=== PATIENT | male | born 1995 | race Asian ===

== ENCOUNTER 2016-10-14 04:52 | Emergency (ER) | payer OTHER ==
[2016-10-14 05:52] VITALS: BP 122/73
[2016-10-14] MEDS ORDERED: ULTRAM PO ONE (06:26)
--- NOTE | 2016-10-14 06:27 | Emergency Department Report ---
ED Lower Extremity HPI - General Chief Complaint: Extremity Injury, Lower Stated Complaint: L KNEE PAIN/EDEMA Time Seen by Provider: 10/14/16 06:22 Source: patient Mode of arrival: Ambulatory Limitations: No Limitations - History of Present Illness Initial Comments: pt is s 21 y/o aam with hx left knee pain with hx of effusions drained x 2 by ortho, pt presents for left knee pain since yesterday as "I woke up with pain in my left knee" , pt advises that he hyperenxtended his knee which exacerbated pain of 5/10 , symptoms include aching and swelling , pain is exacerbated by ambulation pain is relieved by rest and elevation Complaint: knee injury Onset/Timin -: days(s) Injury: Knee: Left (pain swelling ) Type of Injury: hyperextension Place: home Severity: moderate Severity scale (0 -10): 5 Improves With: rest Worsens With: weight bearing, movement, palpation Context: other (hyperextended knee ) Associated Symptoms: snap/pop sensation, swelling, able to partially bear weight. denies: numbness, tingling Treatments Prior to Arrival: other (none) - Related Data Previous Rx's Medication Instructions Recorded Last Taken Type Acetaminophen/Codeine 1 tab PO Q6H PRN #25 tab 02/20/14 Unknown Rx [Acetaminophen-Codeine #3 TAB] Amoxicillin/K Clav Tab [Augmentin 1 tab PO BID #20 tablet 02/20/14 Unknown Rx 875MG] Ibuprofen [Motrin] 600 mg PO Q8H PRN #60 tablet 02/20/14 Unknown Rx predniSONE [Deltasone] 50 mg PO QDAY #5 tab 02/20/14 Unknown Rx Cyclobenzaprine [Flexeril] 10 mg PO TID PRN #15 tablet 09/30/15 Unknown Rx Ibuprofen [Motrin 800 MG tab] 800 mg PO Q8HR PRN #30 tablet 09/30/15 Unknown Rx Cyclobenzaprine [Flexeril] 10 mg PO TID PRN #30 tablet 10/14/16 Unknown Rx Naproxen [Naprosyn TAB] 500 mg PO BID PRN #60 tablet 10/14/16 Unknown Rx predniSONE [Deltasone] 40 mg PO QDAY #5 tab 10/14/16 Unknown Rx Allergies Allergy/AdvReac Type Severity Reaction Status Date / Time No Known Allergies Allergy Unverified 02/20/14 14:31 ED Review of Systems ROS: Stated complaint: L KNEE PAIN/EDEMA Other details as noted in HPI Constitutional: denies: chills, fever Eyes: denies: eye pain, eye discharge, vision change ENT: denies: ear pain, throat pain Respiratory: denies: cough, shortness of breath, wheezing Cardiovascular: denies: chest pain, palpitations Endocrine: no symptoms reported Gastrointestinal: denies: abdominal pain, nausea, diarrhea Genitourinary: denies: urgency, dysuria Musculoskeletal: joint swelling, myalgia Skin: denies: rash, lesions Neurological: denies: headache, weakness, paresthesias Psychiatric: denies: anxiety, depression Hematological/Lymphatic: denies: easy bleeding, easy bruising ED Past Medical Hx - Past Medical History Previous Medical History?: No - Surgical History Past Surgical History?: No - Social History Smoking Status: Current Every Day Smoker Substance Use Type: Marijuana - Medications Home Medications: Home Medications Medication Instructions Recorded Confirmed Last Taken Type Acetaminophen/Codeine 1 tab PO Q6H PRN #25 tab 02/20/14 Unknown Rx [Acetaminophen-Codeine #3 TAB] Amoxicillin/K Clav Tab [Augmentin 1 tab PO BID #20 tablet 02/20/14 Unknown Rx 875MG] Ibuprofen [Motrin] 600 mg PO Q8H PRN #60 tablet 02/20/14 Unknown Rx predniSONE [Deltasone] 50 mg PO QDAY #5 tab 02/20/14 Unknown Rx Cyclobenzaprine [Flexeril] 10 mg PO TID PRN #15 tablet 09/30/15 Unknown Rx Ibuprofen [Motrin 800 MG tab] 800 mg PO Q8HR PRN #30 tablet 09/30/15 Unknown Rx Cyclobenzaprine [Flexeril] 10 mg PO TID PRN #30 tablet 10/14/16 Unknown Rx Naproxen [Naprosyn TAB] 500 mg PO BID PRN #60 tablet 10/14/16 Unknown Rx predniSONE [Deltasone] 40 mg PO QDAY #5 tab 10/14/16 Unknown Rx ED Physical Exam - General Limitations: No Limitations General appearance: alert, in no apparent distress - Head Head exam: Present: atraumatic, normocephalic - Eye Eye exam: Present: normal appearance - ENT ENT exam: Present: mucous membranes moist - Neck Neck exam: Present: normal inspection - Respiratory Respiratory exam: Present: normal lung sounds bilaterally. Absent: respiratory distress - Cardiovascular Cardiovascular Exam: Present: regular rate, normal rhythm. Absent: systolic murmur, diastolic murmur, rubs, gallop - GI/Abdominal GI/Abdominal exam: Present: soft, normal bowel sounds - Rectal Rectal exam: Present: deferred - Extremities Exam Extremities exam: Present: tenderness, normal capillary refill, joint swelling. Absent: pedal edema, calf tenderness - Expanded Lower Extremity Exam Left Hip exam: Present: normal inspection, full ROM Upper Leg exam: Present: normal inspection, full ROM Knee exam: Present: tenderness, swelling, effusion, pain w/ pronation/supination , full knee extension. Absent: abrasion, laceration, ecchymosis, deformity, crepidus, dislocation, erythema, posterior draw sign, pain/laxity with valgus, pain/laxity with varus Lower Leg exam: Present: normal inspection, full ROM Ankle exam: Present: normal inspection, full ROM Foot/Toe exam: Present: normal inspection, full ROM Neuro vascular tendon exam: Present: no vascular compromise. Absent: pulse deficit, abnormal cap refill, motor deficit, sensory deficit, tendon deficit, extremity cold to touch, pallor, abnormal 2-point discrimination, decreased fine /light touch, foot drop, peroneal nerve deficit, significant pain with passive ROM of distal joint Gait: Positive: observed and limited by pain - Back Exam Back exam: Present: normal inspection, full ROM. Absent: CVA tenderness (R), CVA tenderness (L), muscle spasm, paraspinal tenderness - Neurological Exam Neurological exam: Present: alert, oriented X3, motor sensory deficit, reflexes normal - Psychiatric Psychiatric exam: Present: normal affect, normal mood - Skin Skin exam: Present: warm, dry, intact, normal color. Absent: rash ED Course Vital Signs 10/14/16 05:43 Temperature 99 F Pulse Rate 81 Respiratory 16 Rate Blood Pressure 122/73 O2 Sat by Pulse 98 Oximetry ED Lower Extremity MDM - Radiology Data Radiology results: image reviewed no acute fracture noted small effusion - Medical Decision Making pt is a 21 y/o aam with hx of left knee pain was follow by orthopedics but know lacks insurance last ortho visit 1 yr ago , for athrocentesis, of same knee , pt advises that he hyperextended his knee in his sleep and was awakened by pain , pain is described as 5/10 aching pain is relieved by rest and elevation, is exacerbated by weight bearing and prolonged standing exam: noted swelling no deformity no drawer pain in internal rotation no prepatellar tenderness no effusion, no bursitis pt has full extension , pain is exacerbated by full flexion there is no calf tenderness no palpable bakers cyst no knee is not hot to touch no likely septic no suspicion for dvt, xray noted no acute fracture noted plan: Mal , nsaids, muscle relaxant will referr to Orthopedics Dr. Kolb [phone] pt will follow up with for follow up evaluation of knee pt verbalized agreement and understanding with discharge plan. Critical care attestation.: If time is entered above; I have spent that time in minutes in the direct care of this critically ill patient, excluding procedure time. ED Disposition Clinical Impression: Effusion, left knee Knee strain Qualifiers: Encounter type: initial encounter Laterality: left Qualified Code(s): S86.912A - Strain of unspecified muscle(s) and tendon(s) at lower leg level, left leg, initial encounter Disposition: TO HOME OR SELFCARE Is pt being admited?: No Does the pt Need Aspirin: No Condition: Good Instructions: Knee Effusion (ED), Knee Exercises (GEN) Prescriptions: Cyclobenzaprine [Flexeril] 10 mg PO TID PRN #30 tablet PRN Reason: Muscle Spasm Naproxen [Naprosyn TAB] 500 mg PO BID PRN #60 tablet PRN Reason: Pain predniSONE [Deltasone] 40 mg PO QDAY #5 tab Referrals: PRIMARY MD AYSE [Primary Care Provider] - 3-5 Days BROOK KOLB MD [Staff Physician] - 3-5 Days Forms: Work/School Release Form(ED) Time of Disposition: 07:01
[2016-10-14] MEDS ORDERED: MOTRIN PO ONE (06:36)
[2016-10-14] MEDS ORDERED: MOTRIN ONE (06:36)
--- NOTE | 2016-10-14 06:55 | XRay Report ---
FINAL REPORT PROCEDURE: XR KNEE 3V LT TECHNIQUE: LEFT knee radiographs, AP and lateral views. CPT 85787 HISTORY: pain and swelling L knee COMPARISON: No prior studies are available for comparison. FINDINGS: Fracture (s) and/or Dislocation(s): None . Alignment: Normal . Joint space(s): There is a well corticated rounded calcific density identified in the medial joint compartment adjacent to the medial femoral condyle. Loose body is suspected.. Soft tissues: Mild tissue swelling. Mild joint effusion. Bone mineralization: Normal . Foreign bodies: None . IMPRESSION: Mild soft tissue swelling and mild joint effusion. No acute fracture is identified..
== END 2016-10-14 07:09 | disposition home or self-care (01) ==
LOC: ED 04:52
DX: S76.912A Strain of unspecified muscles, fascia and tendons at thigh level, left thigh, initial encounter (principal); F12.10 Cannabis abuse, uncomplicated; F17.210 Nicotine dependence, cigarettes, uncomplicated; X58.XXXA Exposure to other specified factors, initial encounter; Y93.89 Activity, other specified; Y92.89 Other specified places as the place of occurrence of the external cause; Y99.8 Other external cause status
CPT/HCPCS: 99283

== ENCOUNTER 2018-12-17 20:59 | Emergency (ER) | payer OTHER ==
--- NOTE | 2018-12-17 21:43 | Emergency Department Report ---
Blank Doc - Documentation Documentation: 23-year-old male that presents with n/v/d. Denies any abdominal pain. This initial assessment/diagnostic orders/clinical plan/treatment(s) is/are subject to change based on patient's health status, clinical progression and re- assessment by fellow clinical providers in the ED. Further treatment and workup at subsequent clinical providers discretion. Patient/guardians urged not to elope from the ED as their condition may be serious if not clinically assessed and managed. Initial orders include: 1- Patient sent to [facility] for further evaluation and treatment 2- labs 3- UA 4- XR abd
[2018-12-17 22:33] LABS: Basophils # (Auto) 0.1 K/mm3 (0.0-0.1); Basophils % (Auto) 0.7 % (0.0-1.8); Eosinophils # (Auto) 0.3 K/mm3 (0.0-0.4); Eosinophils % (Auto) 4.2 % (0.0-4.3); Hematocrit 45.7 % (35.5-45.6); Hemoglobin 15.5 gm/dl (11.8-15.2); Lymphocytes % (Auto) 29.5 % (13.4-35.0); Mean Corpuscular HGB Conc 34 % (32-34); Mean Corpuscular Volume 92 fl (84-94); Monocytes # (Auto) 0.4 K/mm3 (0.0-0.8); Monocytes % (Auto) 5.9 % (0.0-7.3); Platelet Count 157 K/mm3 (140-440); Red Blood Count 4.96 M/mm3 (3.65-5.03); Red Cell Distribution Width 13.1 % (13.2-15.2)
--- NOTE | 2018-12-17 22:33 | XRay Report ---
Abdomen 3 views, 12/17/2018 Indication: Nausea vomiting and diarrhea Findings: The bowel gas pattern is within normal limits. There are no dilated loops of large or small bowel. No free air is identified. No radiopaque urinary tract calculi are seen. Lung bases are clear. Impression: No acute findings. Signer Name: Royce Starkey MD Signed: 12/17/2018 10:28 PM Workstation Name: [id number]
[2018-12-17 22:53] LABS: Alanine Aminotransferase 13 units/L (7-56); Albumin 4.5 g/dL (3.9-5); BUN/Creatinine Ratio 12; Blood Urea Nitrogen 12 mg/dL (9-20); Calcium 9.6 mg/dL (8.4-10.2); Hemolysis Index 11
[2018-12-17] MEDS ORDERED: LEVSIN SL SL ONE (23:48)
[2018-12-17] MEDS ORDERED: ZOFRAN ODT PO STA (23:48)
--- NOTE | 2018-12-18 00:10 | Emergency Department Report ---
ED N/V/D HPI - General Chief complaint: Nausea/Vomiting/Diarrhea Stated complaint: DIARRHEA VOMITING Time Seen by Provider: 12/17/18 21:41 Source: patient Mode of arrival: Ambulatory Limitations: No Limitations - History of Present Illness Initial comments: 23 y/o Afro-[place]ican male smoker department complaining of nausea vomiting diarrhea since eating [employer] last night. States that at the [employer] he woke up early in the following morning with increase gastrointestinal activity associated with frequent episodes of diarrhea and nausea and stomach cramping. The posterior hemoptysis, hematemesis nor hematochezia. No fever, chills, sweats MD complaint: nausea, vomiting, diarrhea -: Sudden Description of Vomiting: food contents Description of Diarrhea: water, green Associated Abdominal Pain: No Location: diffuse Radiation: none Severity: mild Quality: cramping Consistency: constant Improves with: none Worsens with: eating Context: possible food poisoning Associated Symptoms: nausea/vomiting. denies: loss of appetite, syncope, weakness - Related Data Previous Rx's Medication Instructions Recorded Last Taken Type Acetaminophen/Codeine 1 tab PO Q6H PRN #25 tab 02/20/14 Unknown Rx [Acetaminophen-Codeine #3 TAB] Amoxicillin/K Clav Tab [Augmentin 1 tab PO BID #20 tablet 02/20/14 Unknown Rx 875MG] Ibuprofen [Motrin] 600 mg PO Q8H PRN #60 tablet 02/20/14 Unknown Rx predniSONE [Deltasone] 50 mg PO QDAY #5 tab 02/20/14 Unknown Rx Cyclobenzaprine [Flexeril] 10 mg PO TID PRN #15 tablet 09/30/15 Unknown Rx Ibuprofen [Motrin 800 MG tab] 800 mg PO Q8HR PRN #30 tablet 09/30/15 Unknown Rx Cyclobenzaprine [Flexeril] 10 mg PO TID PRN #30 tablet 10/14/16 Unknown Rx Naproxen [Naprosyn TAB] 500 mg PO BID PRN #60 tablet 10/14/16 Unknown Rx predniSONE [Deltasone] 40 mg PO QDAY #5 tab 10/14/16 Unknown Rx Allergies Allergy/AdvReac Type Severity Reaction Status Date / Time No Known Allergies Allergy Verified 12/17/18 21:01 ED Review of Systems ROS: Stated complaint: DIARRHEA VOMITING Other details as noted in HPI Comment: All other systems reviewed and negative ED Past Medical Hx - Past Medical History Previous Medical History?: No - Surgical History Past Surgical History?: No - Social History Smoking Status: Current Some Day Smoker - Medications Home Medications: Home Medications Medication Instructions Recorded Confirmed Last Taken Type Acetaminophen/Codeine 1 tab PO Q6H PRN #25 tab 02/20/14 Unknown Rx [Acetaminophen-Codeine #3 TAB] Amoxicillin/K Clav Tab [Augmentin 1 tab PO BID #20 tablet 02/20/14 Unknown Rx 875MG] Ibuprofen [Motrin] 600 mg PO Q8H PRN #60 tablet 02/20/14 Unknown Rx predniSONE [Deltasone] 50 mg PO QDAY #5 tab 02/20/14 Unknown Rx Cyclobenzaprine [Flexeril] 10 mg PO TID PRN #15 tablet 09/30/15 Unknown Rx Ibuprofen [Motrin 800 MG tab] 800 mg PO Q8HR PRN #30 tablet 09/30/15 Unknown Rx Cyclobenzaprine [Flexeril] 10 mg PO TID PRN #30 tablet 10/14/16 Unknown Rx Naproxen [Naprosyn TAB] 500 mg PO BID PRN #60 tablet 10/14/16 Unknown Rx predniSONE [Deltasone] 40 mg PO QDAY #5 tab 10/14/16 Unknown Rx ED Physical Exam - General Limitations: No Limitations General appearance: alert, in no apparent distress - Head Head exam: Present: atraumatic, normocephalic - Eye Eye exam: Present: normal appearance, PERRL, EOMI Pupils: Present: normal accommodation - ENT ENT exam: Present: mucous membranes moist - Neck Neck exam: Present: normal inspection - Respiratory Respiratory exam: Present: normal lung sounds bilaterally. Absent: respiratory distress - Cardiovascular Cardiovascular Exam: Present: regular rate, normal rhythm. Absent: systolic murmur, diastolic murmur, rubs, gallop - GI/Abdominal GI/Abdominal exam: Present: soft, normal bowel sounds. Absent: guarding, rebound, hypoactive bowel sounds, organomegaly, mass, pulsatile mass - Rectal Rectal exam: Present: deferred - Extremities Exam Extremities exam: Present: normal inspection - Back Exam Back exam: Present: normal inspection - Neurological Exam Neurological exam: Present: alert, oriented X3 - Psychiatric Psychiatric exam: Present: normal affect, normal mood - Skin Skin exam: Present: warm, dry, intact, normal color. Absent: rash ED Medical Decision Making - Lab Data Result diagrams: 12/17/18 22:09 12/17/18 22:09 - Medical Decision Making 23-year-old -Mexican male status post ingestion of methanol followed by nausea vomiting and diarrhea with stomach cramping. Laboratory data is normal and his cramping and nausea are controlled. He reports having about 4-5 episodes of diarrhea since the onset. Vital signs are stable advised him on the full food poisoning diet as well as medications that would be provided to help to alleviate his associated symptoms. Critical care attestation.: If time is entered above; I have spent that time in minutes in the direct care of this critically ill patient, excluding procedure time. ED Disposition Clinical Impression: Gastroenteritis Disposition: [id number]-01 TO HOME OR SELFCARE Is pt being admited?: No Does the pt Need Aspirin: No Condition: Stable Instructions: Food Poisoning (ED), Acute Nausea and Vomiting (ED), Gastroenteritis (ED) Referrals: [facility] [Provider Group] - 3-5 Days
== END 2018-12-18 00:37 | disposition home or self-care (01) ==
LOC: ED 20:59
DX: K52.9 Noninfective gastroenteritis and colitis, unspecified (principal); R11.2 Nausea with vomiting, unspecified; F17.200 Nicotine dependence, unspecified, uncomplicated; Z79.899 Other long term (current) drug therapy
CPT/HCPCS: 36415; 74022; 80053; 83690; 85025; 99283; Q0162